=== PATIENT | female | born 1990 | race African-American/Black ===

== ENCOUNTER 2016-11-01 15:27 | Emergency (ER) | payer SELFPAY ==
[~2016-11-01 15:27] MED LIST: ALBUTEROL17 GM INH; CLEOCIN150 M1 PO; HYDROMET SYRUP480 ML PO; NO MEDICATIONS; PREDNISONE PO; TYLENOL #3 PO; ZITHROMAX PO; [UNRECOGNIZED DRUG - OTHER] PO
== END 2016-11-01 16:16 | disposition home or self-care (01) ==
LOC: SED 15:27
DX: N76.4 Abscess of vulva (principal); F17.210 Nicotine dependence, cigarettes, uncomplicated
CPT/HCPCS: 56405; 99284

== ENCOUNTER 2016-11-03 23:07 | Emergency (ER) | payer SELFPAY | END 2016-11-04 00:14 | disposition home or self-care (01) | LOC: SED 23:07 | DX: Z48.02 Encounter for removal of sutures (principal); L02.214 Cutaneous abscess of groin; F17.200 Nicotine dependence, unspecified, uncomplicated | CPT/HCPCS: 99281 ==